=== PATIENT | female | born 1990 ===

== ENCOUNTER 2024-10-19 08:13 | Emergency (ER) | payer OTHER, SELFPAY ==
[2024-10-19 08:20] VITALS: BP 138/82; BP 149/90; PULSE 77; PULSE 86; RESP 16; TEMP 36.4; O2SAT 97; O2SAT 99; BMI 23.0
--- NOTE | 2024-10-19 08:42 | ED.ALCOHOL ---
HPI - Alcohol General Chief Complaint: ETOH/Substance Use Stated Complaint: ETOH IN [employer] Time Seen by Provider: 10/19/24 08:33 Source: patient and police Mode of arrival: other Limitations: other (Alcohol intoxication and substance abuse.) History of Present Illness ED Provider: DR. Cardenas HPI narrative: 33-year-old female came in after drinking alcohol last night and using PCP patient admitted to use cocaine daily, patient was arrested by the police for substance abuse, patient in the ED is drunk asking to be left alone, no SI, no HI, no hallucination. Related Data Allergies Allergy/AdvReac Type Severity Reaction Status Date / Time No Known Allergies Allergy Verified 10/19/24 08:23 Review of Systems Review of Systems: All other systems are reviewed and are negative Constitutional: Reports as per HPI and Reports no additional constitutional complaints Eyes: Reports as per HPI and Reports no additional eye complaints Reports system reviewed and no additional complaints, except as documented Cardiovascular: Reports as per HPI and Reports no additional cardiovascular complaints Respiratory: Reports as per HPI and Reports no additional respiratory complaints Gastrointestinal: Reports as per HPI and Reports no additional gastrointestinal complaints Genitourinary: Reports no additional female genitourinary complaints Musculoskeletal: Reports no additional musculoskeletal complaints Skin/Breast: Reports system reviewed and no additional complaints, except as docu Psychiatric: Reports no additional psychiatric complaints Endocrine: Reports no additional endocrine complaints Hematologic/Lymphatic: Reports no additional hematologic/lymphatic complaints Allergic/Immunologic: Reports no additional allergic/immunologic complaints Reports system reviewed and no additional complaints, except as documented and Reports Abnormal speech present [facility] Social History Social History Alcohol intake: current Alcohol intake frequency: 3 or more drinks per day Smoked in Last 30 Days: Yes Use of substances other than those prescribed or required for medical reasons: Yes Substance Use Type: Crack/Cocaine and Marijuana Substance Use Frequency: Weekly Last Used Substance: Just Prior to Admission Any prior treatment program specific to substance use: No Do you have a plan to hurt others: No Plan Physical Exam ED Vital Signs: Vital Signs - 24 hr 10/19/24 08:20 Temperature 97.6 F Pulse Rate 77 Respiratory Rate 16 Blood Pressure 138/82 Pulse Oximetry 99 Oxygen Delivery Method Room Air BMI result Body Mass Index 23.0 Vital signs have been reviewed and appear to be correct. Blood pressure elevated. Heart rate normal. Respiratory rate normal. Temperature normal. Oxygen saturation normal. Appearance: Drunk, alcohol on breath. No acute distress. Head: Normal external exam. Normocephalic. Atraumatic. No Worthington signs noted. No raccoon eyes noted Eyes: PERRLA. EOMI. Conjunctiva and sclera normal. Eyelids normal. ENT: TM's Normal. Pharynx normal. Uvula midline. Moist mucous membranes. No trismus noted. No drooling noted. No muffled voice noted. Neck: Normal inspection. Neck supple. FROM. No adenopathy. Thyroid Normal. No meningeal signs. No neck mass noted. CVS: Normal heart rate and rhythm. Heart sound normal. No murmurs noted. Pulses normal throughout. Respiratory: No respiratory distress. Painless inspiration. Breath sounds normal. No wheezes/rales/rhonchi noted. Chest nontender. No accessory muscle usage noted or decreased air movement noted. Abdomen: Soft and nontender. Bowel sounds normal in all 4 quadrants. No distention noted. No organomegaly noted. No visible injury noted. Back: No CVA tenderness. Full range of motion noted. Skin: Skin warm and dry. Normal skin color. Normal skin turgor. No rashes/lesions/lacerations noted. Extremities: No lower extremity edema. Extremities exhibit normal range of motion. Extremities nontender. Neuro: Mental status: Normal attention, orientation, memory, and affect. Cranial nerves: Pupils are equal, round and reactive to light, EOMI, visual gibbs are fall, face is symmetric, facial sensations are normal. Motor examination normal muscle tone, strength to 4 extremities. DTR are +2, planter's are flexor. Sensory exam; normal coordination, no ataxia, gait stable. Cerebellar exam: [id number] and [id number]-[id number] is normal. Extrapyramidal system: No tremors, no rigidity with normal facial expressions. Pronator drift not present Course Reevaluation(s) Reevaluation #1: Brother is at the bedside willing to take the patient home, patient is arousable, no SI, no HI, no hallucination. Patient is not seeking detox at the current time and would like to be discharged with her family. Time: 10:57 Medical Decision Making Differential Diagnosis Differential Diagnoses: The differential diagnosis associated with the presentation includes (Alcohol intoxication, substance abuse, trauma, head injury, SI, HI.) Admission/Observation Consideration of admission/observation: Escalation of care including admission/observation considered Discharge Plan Discharge Clinical Impression: Alcoholic intoxication, Substance abuse Patient Disposition: Home, Self-Care Instructions: Alcohol Intoxication (ED), Polysubstance Abuse (ED)
[2024-10-19 11:04] VITALS: BP 121/68; PULSE 88; RESP 16; TEMP 36.8; O2SAT 97
== END 2024-10-19 11:06 | disposition home or self-care (01) ==
LOC: HO.ED 11:06
PROVIDERS: Emergency Provider Emergency Medicine; PCP Internal Medicine
DX: F10.129 Alcohol abuse with intoxication, unspecified (principal); F14.10 Cocaine abuse, uncomplicated; Y90.9 Presence of alcohol in blood, level not specified; Z71.51 Drug abuse counseling and surveillance of drug abuser
CPT/HCPCS: 99283